=== PATIENT | male | born 1975 | race Caucasian/White ===

== ENCOUNTER 2019-09-23 10:06 | Inpatient (IN) | payer BC ==
--- NOTE | 2019-09-23 11:26 | BHS.RME ---
Substance Use & Tx History - Substance Use History Heroin Substance amount: 15 bags/day Frequency of use: Daily Substance route: Inhalation (ex: sniffing or snorting) Cannabis Substance amount: 1 x/week Frequency of use: Less than 3 times per week - Last Treatment Date of last treatment: 2014 Where was last treatment: Detox Physical/Psych/Mental Status - Behavior General Behavior: Decreased activity Eye Contact: Normal - Cooperativeness Cooperativeness: Cooperative - Thinking Thought Processes: Logical Thought content: Future oriented - Physical Health Problems Is patient presently having any pain?: No Does patient presently have any injuries (include location): No Does patient currently have a fever: No COWS - Scale Resting Pulse: 1= ID [id number] Sweatin=Flushed/Facial Moisture Restless Observation: 3= Extraneous Movement Pupil Size: 0= Normal to Room Light Bone or Joint Aches: 2= Severe Diffuse Aches Runny Nose/ Eye Tearin= None GI Upset > 30mins: 2= Nausea/Diarrhea Tremor Observation: 0= None Yawning Observation: 0= None Anxiety or Irritability: 2=Irritable/Anxious Goose Flesh Skin: 0=Smooth Skin COWS Score: 12
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
[2019-09-23] MEDS ORDERED: IBUPROFEN 400 MG TABLET (FP) PO PRN (12:05)
[2019-09-23] MEDS ORDERED: MENTHOL/PHENOL 1 EACH UD MM PRN (12:05)
[2019-09-23] MEDS ORDERED: MAGNESIUM HYDROX 2400MG/30ML ORAL SUSPENSION 30 ML CUP PO PRN (12:05)
[2019-09-23] MEDS ORDERED: MELATONIN 5 MG TABLETS PO PRN (12:05)
[2019-09-23] MEDS ORDERED: NICOTINE POLACRILEX 2 MG GUM BUC PRN (12:05)
[2019-09-23] MEDS ORDERED: MAG HYDROX/AL HYDROX/SIMETH 30 ML UNIT-DOSE CUP PO PRN (12:05)
[2019-09-23] MEDS ORDERED: ACETAMINOPHEN 325 MG TABLET (FP) PO PRN ×2 (12:05)
[2019-09-23] MEDS ORDERED: MAGNESIUM CITRATE 300 ML BOTTLE PO PRN (12:05)
[2019-09-23] MEDS ORDERED: BISMUTH SUBSALICYLATE 262 MG/15 ML BTL PO PRN (12:05)
[2019-09-23 12:18] VITALS: BMI 22.6
[2019-09-23] MEDS ORDERED: METHADONE HCL 10 MG TABLET (FOR DETOX USE ONLY) PO ONE (12:21)
[2019-09-23] MEDS: ONDANSETRON *ODT* 4 MG TABLET SL PRN ×2 (20:39→20:40)
[2019-09-23] MEDS ORDERED: TRIMETHOBENZAMIDE HCL 200MG/2ML INJ IM ONE (20:48)
--- NOTE | 2019-09-23 20:51 | PN ---
[facility] Progress Note Note: As reported by Toan Ibeth Mccain, patient vomited x 3 Vital Signs Temperature 98.2 F 09/23/19 16:50 Pulse Rate 62 09/23/19 16:50 Respiratory Rate 18 09/23/19 16:50 Blood Pressure 129/73 09/23/19 16:50 O2 Sat by Pulse Oximetry (%) 97 09/23/19 12:50 Action: Trimethobenzamide (Tigan) 200mg intramuscular ordered
[2019-09-23] MEDS: cloNIDine HCL 0.1 MG TABLET PO PRN (21:04)
[2019-09-23] MEDS: THIAMINE HCL 100 MG TABLET (FP) PO SCH (21:51)
[2019-09-24] MEDS: METHOCARBAMOL 500 MG TABLET PO PRN (05:15)
[2019-09-24] MEDS: hydrOXYzine PAMOATE 25 MG CAPSULE (FP) PO PRN (05:15)
[2019-09-24] MEDS ORDERED: METHADONE HCL 5 MG TABLET (FOR DETOX USE ONLY) ONE (08:57)
[2019-09-24] MEDS ORDERED: METHADONE HCL 10 MG TABLET (FOR DETOX USE ONLY) ONE (08:58)
[2019-09-24] MEDS ORDERED: METHADONE (DETOX) 20 MG, METHADONE (DETOX) 5 MG PO ONE (10:00)
[2019-09-24 10:08] LABS: HEMATOCRIT 41.5 % (35.4-49); HEMOGLOBIN 13.3 GM/dL (11.7-16.9); MCH 29.9 pg (25.7-33.7); MCHC 32.1 g/dl (32.0-35.9); MEAN CELL VOLUME 93.2 fl (80-96); MEAN PLT VOLUME 9.7 fl (7.5-11.1); PLATELET COUNT 247 K/MM3 (134-434); RBC 4.45 M/mm3 (4.00-5.60); RDW 14.4 % (11.9-15.9); WHITE BLOOD COUNT 9.5 K/mm3 (4.0-10.0)
[2019-09-24] MEDS: PRENATAL VITAMINS W/ FOLIC ACID TABLET (FP) PO SCH (10:08)
[2019-09-24 10:14] LABS: ALBUMIN 3.6 g/dl (3.4-5.0); BLOOD UREA NITROGEN 11.3 mg/dL (7-18); CALCIUM 8.7 mg/dL (8.5-10.1); POTASSIUM 3.8 mmol/L (3.5-5.1)
[2019-09-24 10:18] LABS: BILIRUBIN,TOTAL 0.9 mg/dL (0.2-1); CREATININE 0.7 mg/dL (0.55-1.3); TOT PROT 7.5 g/dl (6.4-8.2)
[2019-09-24] MEDS ORDERED: TRIMETHOBENZAMIDE HCL 300 MG CAPSULE PO PRN (13:38)
--- NOTE | 2019-09-24 15:11 | PN ---
BHS COWS - Scale Resting Pulse: 1= ID [id number] Sweatin= Chills/Flushing Restless Observation: 0= Sits Still Pupil Size: 0= Normal to Room Light Bone or Joint Aches: 2= Severe Diffuse Aches Runny Nose/ Eye Tearin= None GI Upset > 30mins: 3= Vomiting/Diarrhea Tremor Observation of Outstretched Hands: 0= None Yawning Observation: 1= 1-2x During Session Anxiety or Irritability: 4=Extreme Anxiety Goose Flesh Skin: 0=Smooth Skin COWS Score: 12 BHS Progress Note (SOAP) Subjective: Fatigue, Vomiting, Anxious, Body Aches, Interrupted Sleep. Objective: Patient A & O X 3; In No Acute Distress. 09/24/19 15:08 Vital Signs Temperature 98.4 F 09/24/19 12:44 Pulse Rate 85 09/24/19 12:44 Respiratory Rate 18 09/24/19 12:44 Blood Pressure 114/61 09/24/19 12:44 O2 Sat by Pulse Oximetry (%) 100 09/24/19 12:44 Laboratory Tests 09/24/19 09/24/19 09/24/19 07:30 07:30 07:30 WBC 9.5 RBC 4.45 Hgb 13.3 Hct 41.5 D MCV 93.2 MCH 29.9 MCHC 32.1 RDW 14.4 Plt Count 247 D MPV 9.7 Sodium 137 Potassium 3.8 Chloride 102 Carbon Dioxide 26 Anion Gap 8 BUN 11.3 Creatinine 0.7 Est GFR (CKD-EPI)AfAm 133.02 Est GFR (CKD-EPI)NonAf 114.77 Random Glucose 89 Calcium 8.7 Total Bilirubin 0.9 AST 28 ALT 24 Alkaline Phosphatase 85 Total Protein 7.5 Albumin 3.6 Syphilis Serology Non-reactive Lab Results noted. Assessment: 09/24/19 15:09 WITHDRAWAL SYMPTOMS. Plan: Continue Detox. Tigan Oral PRN for Nausea / Vomiting. At Patient's Request, Psychiatric Consultation requested for evaluation for severe Anxiety and for Insomnia.
--- NOTE | 2019-09-24 16:08 | CONSULT ---
[facility] Psychiatric Consult - Data Date of interview: 09/24/19 Admission source: [facility] Identifying data: Revisit to [facility] and admission to [address] [place] [address] for this 44 y/o male self-referred for detoxification treatment. SOILA issues : heroin, cannabis, nicotine. Patient is single, no dependents, homeless, unemployed and deprived of income. Substance Abuse History: Discused with the patient. SOILA profile as follows : Smoking history: Current every day smoker. Have you smoked in the past 12 months: Yes. Aproximately how many cigarettes per day: 20. Hx Chewing Tobacco Use: No. Initiated information on smoking cessation: Yes. 'Breaking Loose' booklet given: 09/23/19. - Substances abused. Heroin. Substance route: Inhalation. Frequency: Daily. Amount used: 4100. Age of first use: 15. Date of last use: 09/23/19 Medical History: Medical history is remarkable for antecedent of abdominal surgery in 2010 (perforation of duodenal ulcer). Psychiatric History: Patient endorses history of one psychiatric hospitalization at [facility] (year not recalled). He has been, reportedly, diagnosed with schizoaffective disorder and treated in the past with sertraline + quetiapine. NOT taken for months. Mr Jason indicates that he has dropped out of OPD care " for quite a while ", which is indicative of months of non- adherence to psychiatric care (formerly known to [facility]). Patient denies history of suicide attempts. Physical/Sexual Abuse/Trauma History: Patient denies. Additional Comment: No toxicology for review. Mental Status Exam - Mental Status Exam Alert and Oriented to: Time, Place, Person Cognitive Function: Good Patient Appearance: Unkempt, Disheveled Mood: Hopeful Affect: Appropriate, Normal Range Patient Behavior: Fatigued, Appropriate, Cooperative Speech Pattern: Clear, Appropriate Voice Loudness: Normal Thought Process: Intact, Goal Oriented Thought Disorder: Not Present Hallucinations: Denies Suicidal Ideation: Denies Homicidal Ideation: Denies Insight/Judgement: Poor Sleep: Poorly, Difficulty falling asleep Appetite: Good Gait/Station: Normal Psychiatric Findings - Problem List ([place] 1, 2,3) (1) Opioid use disorder Current Visit: Yes Status: Chronic (2) Nicotine dependence Current Visit: Yes Status: Chronic (3) Cannabis abuse Current Visit: Yes Status: Chronic (4) Substance induced mood disorder Current Visit: Yes Status: Chronic (5) Insomnia Current Visit: Yes Status: Chronic - Initial Treatment Plan Initial Treatment Plan: Psychoeducation. Sleep hygiene. Detoxification. Trazodone 50 mg po hs (ordered at the patient's request). Side effects/benefits discussed (patient is made aware of the risk of priapism). Mr Gomez grants informed consent (verbal) to MD. Hunter.
[2019-09-24] MEDS: traZODone HCL 50 MG TABLET (FP) PO SCH (23:02)
[2019-09-24] MEDS: THIAMINE HCL 100 MG TABLET (FP) PO SCH (23:02)
[2019-09-25] MEDS: METHOCARBAMOL 500 MG TABLET PO PRN (04:31)
[2019-09-25] MEDS: hydrOXYzine PAMOATE 25 MG CAPSULE (FP) PO PRN ×2 (04:31→22:10)
[2019-09-25] MEDS ORDERED: METHADONE HCL 10 MG TABLET (FOR DETOX USE ONLY) PO ONE (10:00)
[2019-09-25] MEDS: PRENATAL VITAMINS W/ FOLIC ACID TABLET (FP) PO SCH (10:04)
--- NOTE | 2019-09-25 12:02 | PN ---
BHS COWS - Scale Resting Pulse: 0= [place] 80 or Below Sweatin= Chills/Flushing Restless Observation: 1= Difficult to Sit Still Pupil Size: 0= Normal to Room Light Bone or Joint Aches: 2= Severe Diffuse Aches Runny Nose/ Eye Tearin= Nasal Congestion GI Upset > 30mins: 1= Stomach Cramp Tremor Observation of Outstretched Hands: 2= Slight Tremor Visible Yawning Observation: 0= None Anxiety or Irritability: 2=Irritable/Anxious Goose Flesh Skin: 0=Smooth Skin COWS Score: 10 BHS Progress Note (SOAP) Subjective: Complaints of anxiety, chills, body aches and irritability. Objective: 09/25/19 12:01 Vital Signs 09/25/19 09/25/19 09/25/19 04:28 06:30 08:31 Temperature 97.8 F 98.6 F Pulse Rate 73 63 Respiratory 18 16 16 Rate Blood Pressure 119/88 136/81 Laboratory Last Values WBC 9.5 K/mm3 (4.0-10.0) 09/24/19 07:30 RBC 4.45 M/mm3 (4.00-5.60) 09/24/19 07:30 Hgb 13.3 GM/dL (11.7-16.9) 09/24/19 07:30 Hct 41.5 % (35.4-49) D 09/24/19 07:30 MCV 93.2 fl (80-96) 09/24/19 07:30 MCH 29.9 pg (25.7-33.7) 09/24/19 07:30 MCHC 32.1 g/dl (32.0-35.9) 09/24/19 07:30 RDW 14.4 % (11.9-15.9) 09/24/19 07:30 Plt Count 247 K/MM3 (134-434) D 09/24/19 07:30 MPV 9.7 fl (7.5-11.1) 09/24/19 07:30 Sodium 137 mmol/L (136-145) 09/24/19 07:30 Potassium 3.8 mmol/L (3.5-5.1) 09/24/19 07:30 Chloride 102 mmol/L (98-107) 09/24/19 07:30 Carbon Dioxide 26 mmol/L (21-32) 09/24/19 07:30 Anion Gap 8 MMOL/L (8-16) 09/24/19 07:30 BUN 11.3 mg/dL (7-18) 09/24/19 07:30 Creatinine 0.7 mg/dL (0.55-1.3) 09/24/19 07:30 Est GFR (CKD-EPI)AfAm 133.02 09/24/19 07:30 Est GFR (CKD-EPI)NonAf 114.77 09/24/19 07:30 Random Glucose 89 mg/dL (74-106) 09/24/19 07:30 Calcium 8.7 mg/dL (8.5-10.1) 09/24/19 07:30 Total Bilirubin 0.9 mg/dL (0.2-1) 09/24/19 07:30 AST 28 U/L (15-37) 09/24/19 07:30 ALT 24 U/L (13-61) 09/24/19 07:30 Alkaline Phosphatase 85 U/L (45-117) 09/24/19 07:30 Total Protein 7.5 g/dl (6.4-8.2) 09/24/19 07:30 Albumin 3.6 g/dl (3.4-5.0) 09/24/19 07:30 Syphilis Serology Non-reactive (NONREACTIVE) 09/24/19 07:30 Labs reviewed. Assessment: 09/25/19 12:02 Alert and oriented x3, in no acute respiratory distress Full ROM, skin warm to touch, ambulatory on unit without assistance. Mild withdrawal symptoms. Plan: Continue detox protocol.
[2019-09-25] MEDS: cloNIDine HCL 0.1 MG TABLET PO PRN ×2 (15:31→22:10)
[2019-09-25] MEDS: traZODone HCL 50 MG TABLET (FP) PO SCH (22:10)
[2019-09-25] MEDS: THIAMINE HCL 100 MG TABLET (FP) PO SCH (22:10)
[2019-09-26] MEDS: METHOCARBAMOL 500 MG TABLET PO PRN ×2 (05:22→18:44)
[2019-09-26] MEDS: hydrOXYzine PAMOATE 25 MG CAPSULE (FP) PO PRN ×2 (05:23→18:44)
[2019-09-26] MEDS ORDERED: MASKS NR ONE (06:19)
[2019-09-26] MEDS ORDERED: METHADONE HCL 5 MG TABLET (FOR DETOX USE ONLY) ONE (09:02)
[2019-09-26] MEDS ORDERED: METHADONE HCL 10 MG TABLET (FOR DETOX USE ONLY) ONE (09:02)
[2019-09-26] MEDS: PRENATAL VITAMINS W/ FOLIC ACID TABLET (FP) PO SCH (09:08)
[2019-09-26] MEDS ORDERED: METHADONE (DETOX) 10 MG, METHADONE (DETOX) 5 MG PO ONE (10:00)
--- NOTE | 2019-09-26 13:17 | PN ---
S COWS - Scale Resting Pulse: 1= [place] 81-100 Sweatin= No chills or Flushing Restless Observation: 1= Difficult to Sit Still Pupil Size: 1= Pupils >than Normal Bone or Joint Aches: 1= Mild Discomfort Runny Nose/ Eye Tearin= Nasal Congestion GI Upset > 30mins: 1= Stomach Cramp Tremor Observation of Outstretched Hands: 2= Slight Tremor Visible Yawning Observation: 1= 1-2x During Session Anxiety or Irritability: 2=Irritable/Anxious Goose Flesh Skin: 0=Smooth Skin COWS Score: 11 S Progress Note (SOAP) Subjective: alert,irritable,anxious,interrupted sleep,pain in body and back,nausea Objective: 09/26/19 13:14 Vital Signs Temperature 98.0 F 09/26/19 08:36 Pulse Rate 84 09/26/19 08:36 Respiratory Rate 18 09/26/19 08:36 Blood Pressure 118/77 09/26/19 08:36 O2 Sat by Pulse Oximetry (%) 98 09/26/19 05:15 Laboratory Last Values WBC 9.5 K/mm3 (4.0-10.0) 09/24/19 07:30 RBC 4.45 M/mm3 (4.00-5.60) 09/24/19 07:30 Hgb 13.3 GM/dL (11.7-16.9) 09/24/19 07:30 Hct 41.5 % (35.4-49) D 09/24/19 07:30 MCV 93.2 fl (80-96) 09/24/19 07:30 MCH 29.9 pg (25.7-33.7) 09/24/19 07:30 MCHC 32.1 g/dl (32.0-35.9) 09/24/19 07:30 RDW 14.4 % (11.9-15.9) 09/24/19 07:30 Plt Count 247 K/MM3 (134-434) D 09/24/19 07:30 MPV 9.7 fl (7.5-11.1) 09/24/19 07:30 Sodium 137 mmol/L (136-145) 09/24/19 07:30 Potassium 3.8 mmol/L (3.5-5.1) 09/24/19 07:30 Chloride 102 mmol/L (98-107) 09/24/19 07:30 Carbon Dioxide 26 mmol/L (21-32) 09/24/19 07:30 Anion Gap 8 MMOL/L (8-16) 09/24/19 07:30 BUN 11.3 mg/dL (7-18) 09/24/19 07:30 Creatinine 0.7 mg/dL (0.55-1.3) 09/24/19 07:30 Est GFR (CKD-EPI)AfAm 133.02 09/24/19 07:30 Est GFR (CKD-EPI)NonAf 114.77 09/24/19 07:30 Random Glucose 89 mg/dL (74-106) 09/24/19 07:30 Calcium 8.7 mg/dL (8.5-10.1) 09/24/19 07:30 Total Bilirubin 0.9 mg/dL (0.2-1) 09/24/19 07:30 AST 28 U/L (15-37) 09/24/19 07:30 ALT 24 U/L (13-61) 09/24/19 07:30 Alkaline Phosphatase 85 U/L (45-117) 09/24/19 07:30 Total Protein 7.5 g/dl (6.4-8.2) 09/24/19 07:30 Albumin 3.6 g/dl (3.4-5.0) 09/24/19 07:30 Syphilis Serology Non-reactive (NONREACTIVE) 09/24/19 07:30 COVID-19 (EWELINA) Not detected (Not Detected) 09/23/19 12:20 Assessment: 09/26/19 13:16 withdrawal symptom Plan: continue detox methadone regimen
[2019-09-26] MEDS: traZODone HCL 50 MG TABLET (FP) PO SCH (21:52)
[2019-09-26] MEDS: THIAMINE HCL 100 MG TABLET (FP) PO SCH (21:52)
[2019-09-27] MEDS: PRENATAL VITAMINS W/ FOLIC ACID TABLET (FP) PO SCH (09:10)
[2019-09-27] MEDS: hydrOXYzine PAMOATE 25 MG CAPSULE (FP) PO PRN (09:11)
[2019-09-27 09:54] VITALS: PULSE 77; TEMP 98.8
[2019-09-27] MEDS ORDERED: METHADONE HCL 10 MG TABLET (FOR DETOX USE ONLY) PO ONE (10:00)
--- NOTE | 2019-09-27 10:09 | PN ---
BHS COWS - Scale Resting Pulse: 0= [place] 80 or Below Sweatin= No chills or Flushing Restless Observation: 0= Sits Still Pupil Size: 0= Normal to Room Light Bone or Joint Aches: 1= Mild Discomfort Runny Nose/ Eye Tearin= Nasal Congestion GI Upset > 30mins: 1= Stomach Cramp Tremor Observation of Outstretched Hands: 2= Slight Tremor Visible Yawning Observation: 1= 1-2x During Session Anxiety or Irritability: 2=Irritable/Anxious Goose Flesh Skin: 0=Smooth Skin COWS Score: 8 BHS Progress Note (SOAP) Subjective: alert,irritable,anxious,interrupted sleep,pain in the body and back,ambulation on the unit Objective: 09/27/19 10:08 Vital Signs Temperature 98.8 F 09/27/19 08:41 Pulse Rate 77 09/27/19 08:41 Respiratory Rate 18 09/27/19 08:41 Blood Pressure 113/70 09/27/19 08:41 O2 Sat by Pulse Oximetry (%) 99 09/27/19 06:10 Assessment: 09/27/19 10:08 withdrawal symptom Plan: continue detox methadone regimen
--- NOTE | 2019-09-27 13:07 | PN ---
[facility] Progress Note Note: patient has problem with the unit rule to keep social distancing from the female client GI,for the safety of the client,patient was offered to be transferred to other detox unit,patient decline the offer,patient stated he is feeling better now, no withdrawal symptom,decide to go home and follow up with after care program as arrangement [facility]
--- NOTE | 2019-09-27 13:27 | PN ---
BHS COWS - Scale Resting Pulse: 0= [place] 80 or Below Sweatin= No chills or Flushing Restless Observation: 0= Sits Still Pupil Size: 0= Normal to Room Light Bone or Joint Aches: 0= None Runny Nose/ Eye Tearin= None GI Upset > 30mins: 0= None Tremor Observation of Outstretched Hands: 0= None Yawning Observation: 0= None Anxiety or Irritability: 1=Feels Anxious/Irritable Goose Flesh Skin: 0=Smooth Skin COWS Score: 1 BHS Progress Note (SOAP) Subjective: alert,no complaint Objective: 09/27/19 13:24 Vital Signs Temperature 98.8 F 09/27/19 08:41 Pulse Rate 77 09/27/19 08:41 Respiratory Rate 18 09/27/19 08:41 Blood Pressure 113/70 09/27/19 08:41 O2 Sat by Pulse Oximetry (%) 99 09/27/19 06:10 Assessment: 09/27/19 13:24 patient would like to go home,no withdrawal symptom Plan: stable for discharge ,[facility] arrangement
--- NOTE | 2019-09-27 13:29 | DS ---
[facility] Detox Discharge Summary Admission Date: 09/23/19 Discharge Date: 09/27/19 - History Present History: Cocaine Dependence, Opioid Dependence Additional Comments: alert,oriented x 3 ambulation on the unit lung clear on auscultation bilaterally no edema of the legs no withdrawal symptom stable for discharge today follow up with after care program as arrangement [facility] left the unit in stable condition,no suicidal,no homicidal total time spending 35 minutes Pertinent Past History: insomnia nicotine dependence history of perforated duodenal ulcer - Physical Exam Results Vital Signs: Vital Signs Temperature 98.8 F 09/27/19 08:41 Pulse Rate 77 09/27/19 08:41 Respiratory Rate 18 09/27/19 08:41 Blood Pressure 113/70 09/27/19 08:41 O2 Sat by Pulse Oximetry (%) 99 09/27/19 06:10 Pertinent Admission Physical Exam Findings: withdrawal signs and symptom Vital Signs Temperature 98.8 F 09/27/19 08:41 Pulse Rate 77 09/27/19 08:41 Respiratory Rate 18 09/27/19 08:41 Blood Pressure 113/70 09/27/19 08:41 O2 Sat by Pulse Oximetry (%) 99 09/27/19 06:10 Laboratory Last Values WBC 9.5 K/mm3 (4.0-10.0) 09/24/19 07:30 RBC 4.45 M/mm3 (4.00-5.60) 09/24/19 07:30 Hgb 13.3 GM/dL (11.7-16.9) 09/24/19 07:30 Hct 41.5 % (35.4-49) D 09/24/19 07:30 MCV 93.2 fl (80-96) 09/24/19 07:30 MCH 29.9 pg (25.7-33.7) 09/24/19 07:30 MCHC 32.1 g/dl (32.0-35.9) 09/24/19 07:30 RDW 14.4 % (11.9-15.9) 09/24/19 07:30 Plt Count 247 K/MM3 (134-434) D 09/24/19 07:30 MPV 9.7 fl (7.5-11.1) 09/24/19 07:30 Sodium 137 mmol/L (136-145) 07/04/20 07:30 Potassium 3.8 mmol/L (3.5-5.1) 09/24/19 07:30 Chloride 102 mmol/L (98-107) 09/24/19 07:30 Carbon Dioxide 26 mmol/L (21-32) 09/24/19 07:30 Anion Gap 8 MMOL/L (8-16) 09/24/19 07:30 BUN 11.3 mg/dL (7-18) 09/24/19 07:30 Creatinine 0.7 mg/dL (0.55-1.3) 09/24/19 07:30 Est GFR (CKD-EPI)AfAm 133.02 09/24/19 07:30 Est GFR (CKD-EPI)NonAf 114.77 09/24/19 07:30 Random Glucose 89 mg/dL (74-106) 09/24/19 07:30 Calcium 8.7 mg/dL (8.5-10.1) 09/24/19 07:30 Total Bilirubin 0.9 mg/dL (0.2-1) 09/24/19 07:30 AST 28 U/L (15-37) 09/24/19 07:30 ALT 24 U/L (13-61) 09/24/19 07:30 Alkaline Phosphatase 85 U/L (45-117) 09/24/19 07:30 Total Protein 7.5 g/dl (6.4-8.2) 09/24/19 07:30 Albumin 3.6 g/dl (3.4-5.0) 09/24/19 07:30 Syphilis Serology Non-reactive (NONREACTIVE) 09/24/19 07:30 COVID-19 (EWELINA) Not detected (Not Detected) 09/23/19 12:20 - Treatment Hospital Course: Detox Protocol Followed, Detoxed Safely, Responded well, Discharged Condition Good, Rehab Referral Accepted Patient has Accepted a Rehab Referral to: [facility] - Medication Discharge Medications: Ambulatory Orders Quetiapine Fumarate [Seroquel -] 100 mg PO HS #0 tablet 04/14/11 Sertraline HCl [Zoloft] 50 mg PO DAILY #0 tablet 04/14/11 Ibuprofen [Motrin -] 600 mg PO Q6H PRN #20 tablet 06/12/11 - Diagnosis (1) Opioid use disorder Current Visit: Yes Status: Chronic (2) Cannabis abuse Current Visit: Yes Status: Chronic (3) Insomnia Current Visit: Yes Status: Chronic (4) Nicotine dependence Current Visit: Yes Status: Chronic (5) Substance induced mood disorder Current Visit: Yes Status: Chronic - AMA Did Patient Leave Against Medical Advice: No
[2019-09-27 14:02] VITALS: BP 143/76
[2019-09-28] MEDS ORDERED: METHADONE HCL 5 MG TABLET (FOR DETOX USE ONLY) PO ONE (06:00)
== END 2019-09-27 13:15 | disposition home or self-care (01) | DRG 773 ==
LOC: YASAS 10:06 → Y6N 12:11
PROVIDERS: ADMIT Allergy & Immunology; ATTEND Allergy & Immunology
PROC: HZ2ZZZZ Detoxification Services for Substance Abuse Treatment (ICD-10-PCS; principal; 2019-09-23)
DX: F11.23 Opioid dependence with withdrawal (principal); F12.10 Cannabis abuse, uncomplicated; F17.210 Nicotine dependence, cigarettes, uncomplicated; F19.24 Other psychoactive substance dependence with psychoactive substance-induced mood disorder; F32.9 Major depressive disorder, single episode, unspecified; G47.00 Insomnia, unspecified; Z87.19 Personal history of other diseases of the digestive system; Z98.890 Other specified postprocedural states; Z56.0 Unemployment, unspecified; Z59.0 Homelessness; Z91.012 Allergy to eggs; Z91.018 Allergy to other foods
CPT/HCPCS: 36415; 71045-TC-FY; 80053; 85027; 86780; J0735; Q0162; U0003